=== PATIENT | female | born 1970 | race Caucasian/White ===

== ENCOUNTER 2016-10-10 15:44 | Emergency (ER) | payer OTHER ==
--- NOTE | 2016-10-10 16:37 | ER NURSING DOCUMENTATION ---
Nurse's Notes [facility] Name:Shanelle Barrientos Age:46 yrs Sex:Female :1970 Arrival Date:10/10/2016 Time:15:44 Bed4 Private MD: Diagnosis:Back Injury Presentation: 10/10 16:02 Presenting complaint: Patient states: [place]" and at the end landed rs very hard and felt a pop in her back. She felt pain immediately. Points to T-12 as area of pain. No hx of back problems. Walked three miles to get to her car. Transition of care: patient was not received from another setting of care. 16:02 Acuity: OBINNA 3 rs 16:02 Method Of Arrival: Private Vehicle rs Triage Assessment: 16:07 General: Appears in no apparent distress, uncomfortable, well developed, well rs nourished, well groomed, Behavior is cooperative, pleasant. Pain: Complains of pain in mid back Pain does not radiate. Pain currently is 5 out of 10 on a pain scale. Neuro: No deficits noted. Level of Consciousness is awake, alert, Oriented to person, place, time, event, Denies weakness blurred vision dizziness, paresthesias numbness headache. Cardiovascular: No deficits noted. Capillary refill < 3 seconds Pulses are 3+ in right radial artery and left radial artery. Respiratory: No deficits noted. Airway is patent Respiratory effort is even, unlabored, Respiratory pattern is regular, symmetrical, Denies shortness of breath pain with respiration. GI: No deficits noted. Derm: No deficits noted. Skin is. Musculoskeletal: Circulation, motion, and sensation intact Capillary refill < 3 seconds Tenderness present in T-12. Historical: - Allergies: PENICILLINS; - Home Meds: 1. None - PMHx: None; - PSHx: Appendectomy; - Tetanus: unknown. - Ebola Screening: : Patient negative for fever greater than or equal to 101.5 degrees Fahrenheit, and additional compatible Ebola Virus Disease symptoms. Patient denies exposure to infectious person. Patient denies travel to an Ebola-affected area in the 21 days before illness onset. No symptoms or risks identified at this time. . - Immunization history: Unable to Obtain. - Social history: Smoking status: Patient states was never smoker of tobacco. Patient uses alcohol weekly. Screenin:14 Infectious Disease Risk None. Abuse screen: Denies threats or abuse. Nutritional rs screening: No deficits noted. Assessment: 16:14 See Triage Assessment done by same RN. rs Vital Signs: 16:05 BP 108 / 79; Pulse 111; Resp 20; Temp 98.0; Pulse Ox 93% on R/A; Pain 5/10; rs ED Course: 15:45 Patient arrived in ED. em3 15:47 Nestor Santiago MD is Attending Physician. dianna 16:01 Rosey Merino, RN is Primary Nurse. rs 16:05 Triage completed. rs 16:12 Notified ED Physician of patient's arrival and chief complaint. Dr. Santiago notified. Arm rs band placed on Bed in low position Call Light in Reach HOB Elevated Side rails up x1. X-ray ordered. 16:14 Valuables Remains with patient. Door closed. Noise minimized. Lights dimmed. Verbal rs reassurance given. 16:15 Walked to x-ray. rs 16:15 Patient moved to radiology. hz 16:18 LUMBOSACRAL SPINE; MIN4V [id number] In Process Unspecified. EDMS 16:19 LUMBOSACRAL SPINE; MIN4V [id number] Sent. hz 16:20 Patient moved back from radiology. hz 16:25 LUMBOSACRAL SPINE; MIN4V [id number] In Process Unspecified. EDMS Administered Medications: No medications were administered Outcome: 16:23 Discharge ordered by . 16:29 Discharged to home ambulatory. rs 16:29 Condition: stable 16:29 Discharge instructions given to patient, Instructed on discharge instructions, follow up and referral plans. medication usage, Demonstrated understanding of instructions, medications, Prescriptions given X 1. 16:36 Patient left the ED. rs Signatures: Dispatcher [employer] EDMS Rosey Merino, LEANDRA RN Nestor Beasley MD MD jm Meiklejohn, Eric em3 Arely Snowden hz
--- NOTE | 2016-10-10 16:37 | ER PHYSICIAN DOCUMENTATION ---
Physician Documentation [facility] Name:Shanelle Barrientos Age:46 yrs Sex:Female :1970 Arrival Date:10/10/2016 Time:15:44 Bed4 Private MD: Nestor Rodriguez Disposition: 10/10/16 16:23 Discharged to Home/Self Care. Impression: Back Injury. - Condition is Good. - Discharge Instructions: BACK PAIN (Acute or Chronic). - Prescriptions for Tylenol- Codeine #3 300-30 mg Oral - take 2 tablet by ORAL route every 6 hours As needed; 20 tablet. - Medical Reconciliation form form. - Follow up: Private Physician; When: 4- 6 days; Reason: Continuance of care. - Problem is new. - Symptoms have improved. HPI: 10/10 16:36 This 46 yrs old Female presents to ER via Private Vehicle with complaints of jm Back Injury. 16:36 The patient presents with pain that is acute, and an injury. The symptoms are located jm in the around T12/L1. Onset: The symptoms/episode began/occurred 2 hour(s) ago. The pain does not radiate. Associated signs and symptoms: Pertinent negatives: numbness, tingling, urinary retention. The problem was sustained was going down the giant slide in [place] and hit a bump and landed on her bottom, but it sent a shockwave up her spine, most notably in the upper lumbar region. Pt was able to walk 3 miles to her car. . Historical: - Allergies: PENICILLINS; - Home Meds: 1. None - PMHx: None; - PSHx: Appendectomy; - Tetanus: unknown. - Ebola Screening: : Patient negative for fever greater than or equal to 101.5 degrees Fahrenheit, and additional compatible Ebola Virus Disease symptoms. Patient denies exposure to infectious person. Patient denies travel to an Ebola-affected area in the 21 days before illness onset. No symptoms or risks identified at this time. . - Immunization history: Unable to Obtain. - Social history: Smoking status: Patient states was never smoker of tobacco. Patient uses alcohol weekly. ROS: 16:36 Constitutional: Negative for fever. jm 16:36 Back: Positive for injury or acute deformity, decreased range of motion, pain at rest, pain with movement, radiated pain, of the lumbar area. 16:36 MS/extremity: Negative for paresthesias, tingling. 16:36 Neuro: Negative for gait disturbance, numbness, tingling. Exam: 16:36 Constitutional: The patient appears alert, awake. jm 16:36 Back: pain, that is moderate, of the T12 and L1, CVA tenderness, is absent, moderate pain in the paraspinal muscles. . 16:36 : CVA tenderness, is absent, Bladder: is normal. 16:36 Neuro: Motor: strength is 5/5 in all extremities, Sensation: is normal, Gait: is steady, Deep tendon reflexes are 1 (trace) + in the right patellar and left patellar. Vital Signs: 16:05 BP 108 / 79; Pulse 111; Resp 20; Temp 98.0; Pulse Ox 93% on R/A; Pain 5/10; rs MDM: 15:47 Patient medically screened. 16:39 Differential diagnosis: ruptured disc, vertebral fracture, sprain. Data reviewed: vital jm signs, nurses notes, radiologic studies, and as a result, I will discharge patient. Test interpretation: by ED physician or midlevel provider: plain radiologic studies. Counseling: I had a detailed discussion with the patient and/or guardian regarding: the historical points, exam findings, and any diagnostic results supporting the discharge/admit diagnosis, radiology results, the need for outpatient follow up, with the patient's primary care provider. ED course: I did not see an acute fx of injury on xray. I suspect disc herniation vs sprain based on mechanism. . 10/10 16:18 Order name: LUMBOSACRAL SPINE; MIN4V [id number] EDMS 10/11 21:47 Order name: LUMBOSACRAL SPINE; MIN4V [id number] EDMS Dispensed Medications: No medications were administered Signatures: Rosey Merino RN RN rs Meyer, John, MD MD jm
--- NOTE | 2016-10-11 21:45 | RADIOLOGY REPORT ---
HISTORY: Low-back pain. TECHNIQUE: Frontal, bilateral oblique and lateral radiographs of the lumbar spine. FINDINGS: Five lumbar type vertebra. No evidence of fracture or dislocation. Vertebral body heights are normall y aligned and well preserved. Disc space heights are well-preserved. Mild anterior wedging T11 vertebral bodies favored be physiologic and less likely posttraumatic in et iology. No pars defects are identified. IMPRESSION: Normal plain film series lumbar spine. Final Electronic Signature: This report was electronically signed by Alexander León MD on 10/11/2016 9: 43 PM. olya /
== END 2016-10-10 16:37 | disposition home or self-care (01) ==
LOC: ER 15:44
DX: S39.82XA Other specified injuries of lower back, initial encounter (principal); Y92.831 Amusement park as the place of occurrence of the external cause; Y93.89 Activity, other specified
CPT/HCPCS: 72110; 99283